=== PATIENT | female | born 1975 | race Caucasian/White ===

== ENCOUNTER 2021-11-27 04:25 | Day surgery (SDC) | payer OTHER ==
[2021-11-26 16:30] VITALS: BMI 26.6
[2021-11-27] MEDS ORDERED: ROCURONIUM BROMIDE 50 MG/5 ML SYRINGE ONE (08:42)
[2021-11-27] MEDS ORDERED: PROPOFOL 20 ML ONE ×3 (08:42→10:28)
[2021-11-27] MEDS ORDERED: MIDAZOLAM HCL 2 MG/2 ML SINGLE DOSE VIAL ONE ×2 (08:42→11:28)
[2021-11-27] MEDS ORDERED: LIDOCAINE HCL/PF 2% SDV 5ML VIAL ONE (08:43)
[2021-11-27] MEDS ORDERED: SCOPOLAMINE HYDROBROMIDE 1 PATCH PATCH.TD72 ONE (09:04)
[2021-11-27] MEDS ORDERED: IBUPROFEN 800 MG/8 ML IJ IVPB PRN (09:12)
[2021-11-27] MEDS ORDERED: ONDANSETRON 4 MG/2 ML VIAL IVPUSH PRN (09:12)
[2021-11-27] MEDS ORDERED: IBUPROFEN 600 MG TABLET (FP) PO PRN (09:12)
[2021-11-27] MEDS ORDERED: oxyCODONE HCL 5 MG TABLET PO PRN (09:12)
[2021-11-27] MEDS ORDERED: ELECTROLYTE-148 SOLN 1,000 ML IV SCH (09:15)
[2021-11-27] MEDS ORDERED: BUPIVACAINE HCL/PF 0.25% (2.5MG/ML) 10 ML VIAL ONE (09:44)
[2021-11-27] MEDS ORDERED: BUPIVACAINE HCL/PF 0.5% (5MG/ML) 10 ML VIAL ONE (09:44)
[2021-11-27] MEDS ORDERED: ACETAMINOPHEN INJECTION 100 ML IVPB ONE (10:16)
[2021-11-27] MEDS ORDERED: GLYCOPYRROLATE 0.2 MG/1 ML VIAL ONE (10:33)
[2021-11-27] MEDS ORDERED: NEOSTIGMINE METHYLSULFATE 0.5 MG/ML - 10 ML MDV ONE (10:33)
[2021-11-27] MEDS ORDERED: DEXAMETHASONE SOD PHOSPHATE 4 MG/1 ML VIAL ONE (10:55)
[2021-11-27] MEDS ORDERED: KETOROLAC TROMETHAMINE 30 MG/1 ML VIAL ONE (10:55)
[2021-11-27] MEDS ORDERED: BUPIVACAINE HCL/PF 0.5% (5 MG/ML) 30 ML VIAL IJ ONE (11:10)
[2021-11-27] MEDS ORDERED: IBUPROFEN 600 MG TABLET (FP) PO ONE ×2 (15:30→15:32)
[2021-11-27 15:43] VITALS: BP 113/81; PULSE 75; TEMP 97.3
== END 2021-11-27 15:47 | disposition home or self-care (01) ==
LOC: JASU-SURG 04:25
PROVIDERS: ATTEND Obstetrics & Gynecology
PROC: 0UT54ZZ Resection of Right Fallopian Tube, Percutaneous Endoscopic Approach (ICD-10-PCS; 2021-11-27)
PROC: 0UT04ZZ Resection of Right Ovary, Percutaneous Endoscopic Approach (ICD-10-PCS; principal; 2021-11-27 09:00)
DX: N83.201 Unspecified ovarian cyst, right side (principal); N83.291 Other ovarian cyst, right side
CPT/HCPCS: 81025; 88108; 88305-TC; 94760; C9803; U0003; U0005